=== PATIENT | male | born 1990 | race Caucasian/White ===

== ENCOUNTER 2017-01-15 23:42 | Emergency (ER) | payer OTHER ==
--- NOTE | 2017-01-15 23:44 | PDOC ---
History of Present Illness - General Chief Complaint: Injury Stated Complaint: RT 1ST TOE INJURY Time Seen by Provider: 01/15/17 23:44 History Source: Patient Exam Limitations: No Limitations - History of Present Illness Initial Comments: 01/16/17 00:05 This is a 26-year-old male who comes in complaining of right great toe injury. Patient was playing basketball when he is ran into another players shoe with his shoe. Patient is complaining of pain to the toenail. Patient denies any other injury. PAST MEDICAL HISTORY: no significant history PAST SURGICAL HISTORY: no significant history FAMILY HISTORY: no pertinant history SOCIAL HISTORY: Pt lives with family and is employed. MEDICATIONS: reviewed ALLERGIES: As per nursing notes Review of Systems General: No fevers or chills, no weakness, no weight loss HEENT: No change in vision. No sore throat,. No ear pain CardioVascular: No chest pain or shortness of breath Respiratory:No cough, or wheezing. Gastrointestinal: no nausea, vomitting, diarrhea or constipation, No rectal bleeding Genitourinary: No dysuria, hematuria, or frequency Musculoskeletal: Right great toe pain Neurologic: No headache, vertigo, dizziness or loss of consciousness Psychiatric: nor depression Skin: No rashes or easy bruising Endocrine: no increased thirst or abnormal weight change Allergic: no skin or latex allergy All other systems reviewed and normal GENERAL: The patient is awake, alert, and fully oriented, in no acute distress. HEAD: Normal with no signs of trauma. EYES: Pupils equal, round and reactive to light, extraocular movements intact, sclera anicteric, conjunctiva clear. EXTREMITIES: Right great toe: There is partial avulsion of approximately 15% of the toenail. There is no bony tenderness and neurovascular is intact. NEUROLOGICAL: Normal speech, normal gait. PSYCH: Normal mood, normal affect. SKIN: Warm, Dry, normal turgor, no rashes or lesions noted. Procedure: The last 15% of the distal toenail was then at a 90 angle. Nail was bent back into position and toe was charleen taped to the toe next to it for additional support and protection. Patient tolerated well. Past History - Past Medical History Allergies/Adverse Reactions: Allergies Allergy/AdvReac Type Severity Reaction Status Date / Time No Known Allergies Allergy Unverified 01/15/17 23:46 Home Medications: Ambulatory Orders Levothyroxine [Synthroid -] 25 mcg PO DAILY 01/15/17 *DC/Admit/Observation/Transfer Diagnosis at time of Disposition: Injury of right great toe Qualifiers: Encounter type: initial encounter Qualified Code(s): S99.921A - Unspecified injury of right foot, initial encounter - Discharge Dispostion Disposition: HOME Condition at time of disposition: Stable Admit: No - Patient Instructions Additional Instructions: Tylenol or Motrin as needed for pain. Charleen tape the toe to the next toe for additional support and comfort. Return to the emergency department immediately with ANY new, persistent or worsening symptoms. Continue any medications as previously prescribed by your physician. You should follow up with your primary doctor as soon as possible regarding today's emergency department visit. . Please make sure your doctor reviews the results of your emergency evaluation. Thank you for coming to the Emergency Department today for your care. It was a pleasure to see you today. Please note that your evaluation is INCOMPLETE until you follow-up with your doctor.
[2017-01-15 23:51] VITALS: BP 123/86; PULSE 70; TEMP 98.1; BMI 25.7
[2017-01-15] MEDS ORDERED: IBUPROFEN 600 MG TABLET (FP) PO ONE (23:53)
[2017-01-16] MEDS: IBUPROFEN 600 MG TABLET (FP) PO ONE (00:10)
== END 2017-01-16 00:12 | disposition home or self-care (01) ==
LOC: FER 23:42
DX: S99.812A Other specified injuries of left ankle, initial encounter (principal); W51.XXXA Accidental striking against or bumped into by another person, initial encounter; Y93.67 Activity, basketball; Y92.310 Basketball court as the place of occurrence of the external cause; Y99.8 Other external cause status
CPT/HCPCS: 99281-25